=== PATIENT | female | born 1995 | race Caucasian/White ===

== ENCOUNTER 2024-07-23 10:30 | Emergency (ER) | payer OTHER, SELFPAY ==
[2024-07-23 10:34] VITALS: BP 132/81; PULSE 68; RESP 16; TEMP 36.2; O2SAT 100; BMI 29.3
--- NOTE | 2024-07-23 10:58 | EDS_ITS ---
HPI History of Present Illness Chief Complaint: Numb/Ting Narrative Narrative: Patient is a 29-year-old female with no known significant past medical history who presents to the emergency department with a chief complaint of bilateral hand pain as well as wrist pain and numbness and tingling. She states that she is also having this in her ankle or in her feet bilaterally as well as her hips. She states that she has had some discomfort in her shoulders as well. States that she followed up with her family doctor when this started on and they did a bunch of blood work and states that they were told that if anything else was concerned to come to the emergency department. Patient states that she has not had any trauma or falls denies any injury to anything. She denies any family history of rheumatoid arthritis. Patient does not believe that she has been bitten by a tick. Patient denies any sick contacts denies any fevers. Patient's significant other at bedside states that they were just concerned as it will be a few more days until the blood work returns. PFSH PFS Home Medications ?Medication ?Instructions ?Recorded ?Last Taken ?Type prednisone 50 mg tablet 50 mg PO DAILY #5 tabs 07/23/24 Unknown Rx Allergy/AdvReac Type Severity Reaction Status Date / Time No Known Allergies Allergy Verified 07/23/24 10:35 ROS ROS ED ROS Narrative Constitutional: Denies any fevers, chills, headaches, lightness, dizziness Eyes: Denies change in vision double vision blurry vision Cardiovascular: Denies chest pain or palpitations Respiratory: Denies coughing wheezing shortness of breath Abdomen: Denies abdominal pain nausea vomiting diarrhea : Denies any urinary symptoms Neurological: Complains of numbness and tingling as noted above denies any weakness Musculoskeletal: Complains of pain in multiple joints as noted above Skin: Denies any rashes or lesions EXAM Physical Exam Narrative Exam Narrative: General: Patient lying in bed resting comfortably did not appear to be in acute distress Head: Atraumatic, normocephalic Eyes: PERRL body, EOMI blood, no conjunctival injection noted Neck: Patient has full range of motion of her neck no pain elicited, soft, supple, trachea midline, no concern for meningitis Cardiovascular: Regular rate and rhythm no murmurs gallops rubs noted Respiratory: Clear to auscultation bilaterally no rales rhonchi or wheezes noted Abdomen: Soft, nondistended, no tenderness palpation, bowel sounds present x 4 Musculoskeletal: No tenderness palpation the midline of the cervical, thora columbar spine. Patient does have some tenderness to palpation over the trapezius region bilaterally Extremities: +5/5 strength noted in the bilateral upper and lower extremities, radial pulses +2/4 in the bilateral per extremities, cap refill less than 2 seconds Neurological: Patient following commands knew that she was at [facility] year is 2023. Sensation grossly intact in the median, ulnar and radial nerve distribution bilaterally as well as the axillary nerve bilaterally. Sensation grossly intact in the bilateral lower extremities, no saddle anesthesia noted Skin: Warm, dry, intact, no rashes or lesions noted Const Vital Signs: 07/23/24 10:34 Temperature 97.2 F L Temperature Source Temporal Pulse Rate 68 Respiratory Rate 16 Blood Pressure 132/81 H Blood Pressure Mean 98 Pulse Ox 100 Oxygen Delivery Method Room Air MDM MDM MDM Narrative Medical decision making narrative: Patient is a 29-year-old female who presented to the emergency department the chief complaint of multiple joints bothering her, tingling in her bilateral upper hands and feet. Once again on evaluation of the patient she is nontoxic in appearance. She states that she had a blood work obtained recently and has a follow-up appointment at the beginning of next week. I had full lengthy discussion with them on further testing and offered them a CBC, CMP, urinalysis to ensure that there is no evidence of electrolyte abnormality and her blood counts are normal. I have low suspicion that these will be abnormal. They inquired about further imaging and at this point time I advised them since there was no traumatic injury, no fevers no abdominal pain and no symptoms largely that I do not feel that imaging will be beneficial at this point time. I did offer to place her on steroids for the next 5 days to see if this will help with her inflammation in the multiple joints that she is complaining of. They state that they will decide if they want to start this or not this will be sent to their pharmacy to start if they so wish. They are advised to follow-up with the primary care physician outpatient setting and return with worsening symptoms or other concerns. They are agreeable with this plan they would like to go home at this point time all question concerns answered she was discharged home in stable condition. Discharge Plan Triage Chief Complaint: Numb/Ting ED Provider: Redd Hilton Dx/Rx/DC Orders Clinical Impression: Joint pain in both hands, Joint pain of ankle and foot Prescriptions: New prednisone 50 mg tablet 50 mg PO DAILY Qty: 5 0RF Primary Care Provider: Natalee Correa NP Referrals: Natalee Correa NP, [employer] [employer] [Primary Care Provider] - Activity Restrictions/Additional Instructions: Follow-up with your primary care physician in the outpatient setting on the blood work that was obtained. Return with worsening symptoms or any other concerns. duplicate maker the steroids and start these as prescribed if desired as we discussed here in the emergency department. Rotate Tylenol and ibuprofen for pain control. Print Language: Setswana Disposition Disposition: Home, Self Care
[2024-07-23 11:11] VITALS: BP 127/84; PULSE 64; RESP 15; TEMP 36.4; O2SAT 99
== END 2024-07-23 11:13 | disposition home or self-care (01) ==
PROVIDERS: Emergency Provider Emergency Medicine; PCP Nurse Practitioner Family; Visit Provider Emergency Medicine
DX: M25.541 Pain in joints of right hand (principal); M25.542 Pain in joints of left hand; M25.571 Pain in right ankle and joints of right foot; M25.572 Pain in left ankle and joints of left foot
CPT/HCPCS: 99282

== ENCOUNTER → 2024-11-08 | Outpatient (CLI) | payer OTHER, SELFPAY ==
[2024-11-08 13:03] LABS: Absolute Neutrophil Count 4.1 X10^3/uL (2.0-7.7); Basophil# 0.03 X10^3/uL; Basophil% 0.4 % (0-1); Eosinophil# 0.14 X10^3/uL; Hematocrit 39.6 % (37-47); Hemoglobin 13.3 g/dL (12.0-15.0); Lymphocyte % 30.3 % (19-41); Mean Corp Hgb Conc 33.6 g/dL (32-36); Mean Corpuscular Hgb 28.9 pg (27.0-32.0); Mean Corpuscular Volume 86.1 fL (81-99); Mean Platelet Vol. 10.3 fl (6.2-12.0); Monocyte% 7.2 % (0-10); NRBC Flagged by Analyzer 0 % (0-5); Neutrophil # 4.14 X10^3/uL (2.7-7.7); Neutrophil % 59.8 % (47-70); Platelet Count 308 K/mm3 (150-450); RBC Distribution Width CV 12.3 % (11.6-14.6); RBC Distribution Width SD 38.4 fl (35.1-43.9); White Blood Count 6.9 K/mm3 (4.4-11.0)
[2024-11-08 13:16] LABS: ALB/GLOB Ratio 1.5 RATIO (0.9-2.4); AST(SGOT) 20 U/L (<=31); Alanine Aminotransfer ALT/SGPT 14 U/L (<=34); Albumin, Serum 4.5 g/dL (3.5-5.0); Alkaline Phosphatase 60 U/L (35-104); Anion Gap 11 (5-15); BUN 11 mg/dL (4-19); BUN/Creat Ratio 15.6 RATIO (10-20); Calcium,Total 9.3 mg/dL (7.6-11.0); Carbon Dioxide 22.2 mmol/L (21.0-32.0); Chloride 105 mmol/L (98-108); Creatinine, Serum 0.67 mg/dL (0.70-1.20); EST Glomerular Filtration Rate 121 (>60); Globulin 2.9 g/dL (2.2-4.2); Glucose 83 mg/dL (70-99); Potassium 3.6 mmol/L (3.3-5.1); Protein, Total 7.4 g/dL (5.9-8.4); Sodium Level 139 mmol/L (133-145); Total Bilirubin 0.41 mg/dL (0.00-1.30)
== END | disposition home or self-care (01) ==
LOC: MTLAB 09:58
PROVIDERS: PCP Nurse Practitioner Family; Referring Provider Internal Medicine Rheumatology; Visit Provider Internal Medicine Rheumatology
DX: M06.4 Inflammatory polyarthropathy (principal)
CPT/HCPCS: 36415; 80053; 85025